=== PATIENT | female | born 1965 | race Caucasian/White ===

== ENCOUNTER 2023-05-21 15:23 | Outpatient (CLI) | payer BC | END 2023-05-21 15:24 | disposition home or self-care (01) | LOC: CSHRAD 15:23 | PROVIDERS: ATTEND Family Medicine | DX: S93.431D Sprain of tibiofibular ligament of right ankle, subsequent encounter (principal); S82.831A Other fracture of upper and lower end of right fibula, initial encounter for closed fracture; M79.89 Other specified soft tissue disorders ==